=== PATIENT | male | born 1980 | race Two or more races ===

== ENCOUNTER 2024-04-05 04:47 | Emergency (ER) | payer OTHER, MEDICAID ==
[~2024-04-05] VITALS: Ht 180.3 cm; Wt 109.0 kg
[2024-04-05 06:32] VITALS: BP 132/74; PULSE 88; RESP 16; TEMP 98.2; O2SAT 99
[2024-04-05] MEDS ORDERED: NAPR-746 PO (07:10)
[2024-04-05] MEDS ORDERED: CYCL-837 PO (07:10)
== END 2024-04-05 07:20 | disposition home or self-care (01) ==
LOC: ER 04:47 → EDBD 04:47 → ER 07:19
DX: M25.512 Pain in left shoulder (principal); Z88.8 Allergy status to other drugs, medicaments and biological substances; V89.2XXA Person injured in unspecified motor-vehicle accident, traffic, initial encounter; Y93.89 Activity, other specified; Y92.89 Other specified places as the place of occurrence of the external cause; Y99.8 Other external cause status
CPT/HCPCS: 73030